=== PATIENT | male | born 1965 | race Caucasian/White ===

== ENCOUNTER 2022-08-30 09:43 | Observation (INO) | payer OTHER ==
[~2022-08-30] VITALS: Ht 165.1 cm; Wt 91.2 kg
[2022-08-30 09:46] VITALS: BP 164/94
--- NOTE | 2022-08-30 09:54 | NUR ---
57/M WALKED IN C/O INTERMITTENT MIDSTERNAL CP RADIATING TO ARM AND BACK ACCOMPANIED BY DIZIZNESS X 3 DAYS. NKA PMH: HTN
[2022-08-30] MEDS ORDERED: ASPIRIN 81 MG TAB.CHEW PO ONE (09:55)
--- NOTE | 2022-08-30 10:08 | NUR ---
URINE COLLECTED AND SENT TO LAB
--- NOTE | 2022-08-30 10:08 | NUR ---
BLOOD DRAWN AND SENT TO LAB
[2022-08-30 10:12] LABS: BASOPHILS # (AUTO) 0.1 K/uL (0.00-0.22); BASOPHILS % (AUTO) 0.9 % (0.0-2.0); EOSINOPHILS # (AUTO) 0.2 K/uL (0-0.4); EOSINOPHILS % (AUTO) 1.9 % (0.0-4.0); HEMATOCRIT 46.8 % (36-52); HEMOGLOBIN 16.2 g/dL (12.0-18.0); LYMPHOCYTES # (AUTO) 1.9 K/uL (2.0-11.5); LYMPHOCYTES % (AUTO) 17.9 % (20.5-51.1); MEAN CORPUSCULAR HEMOGLOBIN 30 pg (27-31); MEAN CORPUSCULAR HGB CONC 35 g/dL (33-37); MEAN CORPUSCULAR VOLUME 87.7 fL (80-94); MONOCYTES % (AUTO) 9.7 % (1.7-9.3); NEUTROPHILS # (AUTO) 7.5 K/uL (1.8-7.7); NEUTROPHILS % (AUTO) 69.6 % (42.2-75.2); PLATELET COUNT (AUTO) 296 K/uL (140-450); RED BLOOD CELL COUNT(AUTO) 5.34 MIL/uL (4.20-6.10); RED CELL DISTRIBUTION WIDTH 13.7 % (11.6-13.7); WHITE BLOOD COUNT (AUTO) 10.8 K/uL (4.8-10.8)
--- NOTE | 2022-08-30 10:40 | NUR ---
XR DONE AT BEDSIDE
[2022-08-30 11:05] LABS: ALBUMIN 4.1 g/dL (3.4-5.0); ANION GAP 16.3 (8-16); ASPARTATE AMINOTRANSFERASE 14 U/L (15-37); CARBON DIOXIDE 25.4 mmol/L (21-32); CHLORIDE 103 mmol/L (98-107); CREATININE 0.9 mg/dL (0.6-1.3); GFR ARICAN-AMERICAN 112 mL/min (>90); GLUCOSE 117 mg/dL (74-106); POTASSIUM 3.7 mmol/L (3.5-5.1); SODIUM SERUM 141 mmol/L (136-145); TOTAL BILIRUBIN 0.5 mg/dL (0.0-1.0); UREA NITROGEN, BLOOD 13 mg/dL (7-18)
[2022-08-30 12:12] LABS: BLOOD, URINE TRACE (NEGATIVE)
[2022-08-30 12:13] LABS: APPEARANCE,URINE CLEAR (CLEAR); BILIRUBIN,URINE NEGATIVE (NEGATIVE); COLOR,URINE YELLOW (YELLOW); LEUKOCYTE ESTERASE ,URINE NEGATIVE (NEGATIVE); UGLUCOSE NEGATIVE (NEGATIVE)
[2022-08-30 12:14] LABS: NITRITE, URINE NEGATIVE (NEGATIVE)
[2022-08-30] MEDS ORDERED: HYDROcodone/APAP 5/325 MG 1 TAB TAB PO PRN (12:25)
[2022-08-30] MEDS ORDERED: ONDANSETRON 4 MG/2 ML VIAL IVP PRN (12:25)
[2022-08-30] MEDS ORDERED: KCL 20 MEQ/WATER INJ PREMIX 200 ML IV PRN (12:25)
[2022-08-30] MEDS ORDERED: MAGNESIUM OXIDE 400 MG TAB PO PRN (12:25)
[2022-08-30] MEDS ORDERED: MAG SULF 2000 MG/WATER PREMIX 50 ML IV PRN (12:25)
[2022-08-30] MEDS ORDERED: POTASSIUM CHLORIDE 10 MEQ TABER PO PRN (12:25)
[2022-08-30] MEDS ORDERED: ACETAMINOPHEN 325 MG TAB PO PRN (12:25)
[2022-08-30] MEDS ORDERED: hydrALAZINE 20 MG/ML VIAL IVP PRN (12:25)
[2022-08-30] MEDS ORDERED: MORPHINE SULFATE 2 MG/ML SYR IVP PRN (12:30)
[2022-08-30 13:09] LABS: RBC,URINE 0-5 /HPF (0-5); WBC,URINE 0-5 /HPF (0-5)
[2022-08-30 16:00] VITALS: BP 144/87
[2022-08-30] MEDS ORDERED: NIFE60TE79 (16:30)
[2022-08-30] MEDS ORDERED: CHOL100084 (16:30)
[2022-08-30] MEDS ORDERED: PRAV40TA4 PO (16:30)
[2022-08-30] MEDS ORDERED: LOSA50TA57 PO (16:30)
--- NOTE | 2022-08-30 17:55 | NUR ---
Patient does not wish to proceed with medical care recommended by DR RANDOLPH. Patient given information related to possible complications, up to and including , which could occur as a result of leaving hospital at this time. Patient verbalizes understanding of risks involved leaving against medical advice. Patient has signed AMA form.
[2022-08-31] MEDS ORDERED: ATORVASTATIN 20 MG TAB PO SCH (09:00)
[2022-08-31] MEDS ORDERED: ENOXAPARIN 40 MG/0.4 ML SYR SUBQ SCH (09:00)
[2022-08-31] MEDS ORDERED: ASPIRIN 81 MG TAB.CHEW PO SCH (09:00)
== END 2022-08-30 17:55 | disposition left against medical advice (07) ==
LOC: MED 09:43 → MTU 12:25
PROVIDERS: ADMIT Internal Medicine; ATTEND Internal Medicine
DX: R07.89 Other chest pain (principal); Z20.822 Contact with and (suspected) exposure to COVID-19; R55 Syncope and collapse; I10 Essential (primary) hypertension; E78.5 Hyperlipidemia, unspecified; F17.200 Nicotine dependence, unspecified, uncomplicated; Z79.899 Other long term (current) drug therapy
CPT/HCPCS: 36415; 71045; 80053; 81001; 84484; 85025; 87426; 93005; 99285; G0378